=== PATIENT | female | born 2000 | race Caucasian/White ===

== ENCOUNTER → 2020-08-27 | Outpatient (CLI) | payer OTHER ==
[~2020-08-27] MED LIST: AMOXIL400 MG/5 M PO; FLONASE0.05 MG/AC NS; Zithromax200 MG/5 M PO
== END | disposition home or self-care (01) ==
LOC: US 15:00
PROVIDERS: ATTEND Nurse Practitioner Women's Health
DX: N92.6 Irregular menstruation, unspecified (principal)

== ENCOUNTER → 2020-08-31 | Outpatient (CLI) | payer OTHER ==
[2020-08-31 12:51] LABS: BASO % 0.4 % (0.0-1.0); EOS # 0.4 10*3/uL (0.0-0.4); EOS % 3.6 % (1.0-4.0); HEMATOCRIT 42.4 % (37.0-47.0); LYMPH # 2.7 10*3/uL (1.3-4.4); LYMPH % 27.5 % (27.0-41.0); MEAN CELL VOLUME 79.3 fl (81.0-99.0); MEAN CORPUSCULAR HGB 24.3 pg (27.0-31.0); MEAN CORPUSCULAR HGB CONC 30.7 g/dl (33.0-37.0); MONO # 0.6 10*3/uL (0.1-1.0); MONO % 6.4 % (3.0-9.0); NEUT # 6.1 10*3/uL (2.3-7.9); NEUT % 61.4 % (47.0-73.0); PLATELET COUNT AUTOMATED 334 10*3/uL (130-400); RED BLOOD COUNT 5.35 10*6/uL (4.10-5.10); RED CELL DISTRI WIDTH 15.3 % (0-14.5); WHITE BLOOD COUNT 9.9 10*3/uL (4.8-10.8)
[2020-08-31 13:01] LABS: ALBUMIN 3.4 gm/dl (3.1-4.5); ALKALINE PHOSPHATASE 112 U/L (45-117); BUN 11 mg/dl (7-24); CHLORIDE 110 mmol/L (98-107); CREATININE 0.81 mg/dL (0.55-1.02); POTASSIUM 3.9 mmol/L (3.5-5.1); SGOT/AST 15 IU/L (3-35); SGPT/ALT 38 U/L (12-78); SODIUM 137 mmol/L (136-145); TOTAL PROTEIN 7.9 gm/dL (6.4-8.2)
[2020-09-01 11:06] LABS: FOLLICLE STIMULATING HORMONE 7.4 mIU/mL (.); LUTEINIZING HORMONE 6.8 mIU/mL (.); PROLACTIN 21.5 ng/mL (4.8-23.3)
[2020-09-04 13:06] LABS: TESTOSTERONE FREE, (DIRECT) 1.4 pg/mL (Not Estab.)
[2020-09-05 15:07] LABS: 17-OH PROGESTERONE 28 ng/dL (.)
== END | disposition home or self-care (01) ==
LOC: LAB 12:03
PROVIDERS: Nurse Practitioner Women's Health; ATTEND Nurse Practitioner Family
DX: E28.2 Polycystic ovarian syndrome (principal); L68.0 Hirsutism; L83 Acanthosis nigricans; N92.6 Irregular menstruation, unspecified; R63.5 Abnormal weight gain; Z68.54 Body mass index [BMI] pediatric, 95th percentile for age to less than 120% of the 95th percentile for age; Z84.2 Family history of other diseases of the genitourinary system

== ENCOUNTER 2020-10-20 17:43 | Emergency (ER) | payer OTHER ==
[~2020-10-20] VITALS: Ht 172.7 cm; Wt 98.4 kg
[2020-10-20] MEDS ORDERED: Motrin,Rufen800 MG PO (20:59)
[2020-10-20] MEDS ORDERED: MEDROL DOSEPAK4 MG PO (20:59)
== END 2020-10-20 21:08 | disposition home or self-care (01) ==
LOC: ED 17:43
DX: S39.012A Strain of muscle, fascia and tendon of lower back, initial encounter (principal); Z91.048 Other nonmedicinal substance allergy status; Z88.8 Allergy status to other drugs, medicaments and biological substances; X50.1XXA Overexertion from prolonged static or awkward postures, initial encounter; Y93.89 Activity, other specified; Y92.89 Other specified places as the place of occurrence of the external cause; Y99.0 Civilian activity done for income or pay

== ENCOUNTER → 2020-10-23 | Outpatient (CLI) | payer OTHER ==
[~2020-10-23] MED LIST changes: +MEDROL DOSEPAK4 MG PO; +Motrin,Rufen800 MG PO
== END | disposition home or self-care (01) ==
LOC: D 15:18
PROVIDERS: ATTEND Nurse Practitioner Family
DX: R73.03 Prediabetes (principal)

== ENCOUNTER → 2020-11-07 | Outpatient (CLI) | payer OTHER | END | disposition home or self-care (01) | LOC: MRI 13:00 | PROVIDERS: ATTEND Family Medicine | DX: M51.36 Other intervertebral disc degeneration, lumbar region (principal); M48.061 Spinal stenosis, lumbar region without neurogenic claudication ==

== ENCOUNTER 2021-02-04 17:24 | Emergency (ER) | payer OTHER | END 2021-02-04 18:50 | disposition home or self-care (01) | LOC: ED 17:24 | DX: J68.9 Unspecified respiratory condition due to chemicals, gases, fumes and vapors (principal); Z77.098 Contact with and (suspected) exposure to other hazardous, chiefly nonmedicinal, chemicals ==

== ENCOUNTER 2021-05-28 13:55 | Emergency (ER) | payer OTHER ==
[~2021-05-28] VITALS: Wt 103.0 kg
[2021-05-28] MEDS ORDERED: PREDNISONE20 M1 PO (18:12)
[2021-05-28] MEDS ORDERED: METHOCARBAMOL500 M1 PO (18:12)
== END 2021-05-28 18:18 | disposition home or self-care (01) ==
LOC: ED 13:55
DX: S33.5XXA Sprain of ligaments of lumbar spine, initial encounter (principal); M54.16 Radiculopathy, lumbar region; Z88.8 Allergy status to other drugs, medicaments and biological substances; W18.39XA Other fall on same level, initial encounter; Y93.89 Activity, other specified; Y92.89 Other specified places as the place of occurrence of the external cause; Y99.8 Other external cause status

== ENCOUNTER → 2021-08-24 | Outpatient (CLI) | payer OTHER ==
[~2021-08-24] MED LIST changes: +METHOCARBAMOL500 M1 PO; +PREDNISONE20 M1 PO
== END | disposition home or self-care (01) ==
LOC: US 14:30
PROVIDERS: ATTEND Nurse Practitioner Women's Health
DX: N64.59 Other signs and symptoms in breast (principal)

== ENCOUNTER 2021-09-01 00:37 | Emergency (ER) | payer OTHER ==
[~2021-09-01] VITALS: Ht 170.1 cm; Wt 102.1 kg
== END 2021-09-01 01:12 | disposition home or self-care (01) ==
LOC: ED 00:37
DX: S61.412A Laceration without foreign body of left hand, initial encounter (principal); W26.0XXA Contact with knife, initial encounter; Y93.89 Activity, other specified; Y92.89 Other specified places as the place of occurrence of the external cause; Y99.8 Other external cause status

== ENCOUNTER 2022-02-01 09:57 | Emergency (ER) | payer OTHER ==
[~2022-02-01] VITALS: Ht 172.7 cm; Wt 103.0 kg
[2022-02-01 11:32] LABS: BASO % 0.4 % (0.0-1.0); EOS # 0.2 10*3/uL (0.0-0.4); EOS % 2.1 % (1.0-4.0); HEMATOCRIT 42.6 % (37.0-47.0); LYMPH # 2.5 10*3/uL (1.3-4.4); LYMPH % 25.3 % (27.0-41.0); MEAN CELL VOLUME 87.1 fl (81.0-99.0); MEAN CORPUSCULAR HGB 28.8 pg (27.0-31.0); MEAN CORPUSCULAR HGB CONC 33.1 g/dl (33.0-37.0); MEAN PLATELET VOLUME 9.3 fl (9.6-12.3); MONO # 0.5 10*3/uL (0.1-1.0); MONO % 4.9 % (3.0-9.0); NEUT # 6.6 10*3/uL (2.3-7.9); NEUT % 66.7 % (47.0-73.0); PLATELET COUNT AUTOMATED 304 10*3/uL (130-400); RED BLOOD COUNT 4.89 10*6/uL (4.10-5.10); RED CELL DISTRI WIDTH 12.8 % (0-14.5); WHITE BLOOD COUNT 9.8 10*3/uL (4.8-10.8)
[2022-02-01 11:36] LABS: BILIRUBIN Negative (Negative); BLOOD Negative (Negative); CLARITY Clear (Clear); COLOR Yellow (Yellow); GLUCOSE Negative (Negative); KETONE Negative (Negative); LEUKO ESTERASE 1+ (Negative); NITRITE Negative (Negative); SPECIFIC GRAVITY 1.025 (1.001-1.030); UROBILINOGEN 0.2 E.U./dl (0.0-1.0)
[2022-02-01 11:56] LABS: ALKALINE PHOSPHATASE 113 U/L (45-117); BUN 10 mg/dl (7-24); CHLORIDE 111 mmol/L (98-107); CREATININE 0.87 mg/dL (0.55-1.02); LIPASE 170 U/L (73-393); POTASSIUM 3.7 mmol/L (3.5-5.1); SGOT/AST 12 IU/L (3-35); SGPT/ALT 35 U/L (12-78); SODIUM 141 mmol/L (136-145); TOTAL PROTEIN 7.7 gm/dL (6.4-8.2)
[2022-02-01 12:16] LABS: BETA-HCG, QUANT < 1.0 mIU/mL (1-3)
[2022-02-01] MEDS ORDERED: PREDNISONE50 MG PO (13:28)
== END 2022-02-01 13:31 | disposition home or self-care (01) ==
LOC: ED 09:57
PROVIDERS: Emergency Medicine
DX: J06.9 Acute upper respiratory infection, unspecified (principal); J45.901 Unspecified asthma with (acute) exacerbation; R10.9 Unspecified abdominal pain; Z88.8 Allergy status to other drugs, medicaments and biological substances

== ENCOUNTER → 2022-07-08 | Outpatient (CLI) | payer OTHER ==
[~2022-07-08] MED LIST changes: +PREDNISONE50 MG PO
== END | disposition home or self-care (01) ==
LOC: D 14:07
PROVIDERS: ATTEND Nurse Practitioner Family
DX: E66.9 Obesity, unspecified (principal); E11.9 Type 2 diabetes mellitus without complications; Z68.45 Body mass index [BMI] 70 or greater, adult

== ENCOUNTER 2022-07-21 17:25 | Emergency (ER) | payer OTHER ==
[~2022-07-21] VITALS: Ht 170.1 cm; Wt 108.9 kg
== END 2022-07-21 18:57 | disposition home or self-care (01) ==
LOC: ED 17:25
DX: M25.532 Pain in left wrist (principal); M79.642 Pain in left hand; Z88.8 Allergy status to other drugs, medicaments and biological substances

== ENCOUNTER → 2022-07-21 | Outpatient (CLI) | payer OTHER | END | disposition home or self-care (01) | LOC: RAD 14:37 | PROVIDERS: ATTEND Nurse Practitioner Family | DX: M79.642 Pain in left hand (principal); M79.89 Other specified soft tissue disorders ==

== ENCOUNTER 2022-10-02 23:02 | Emergency (ER) | payer OTHER ==
[~2022-10-02] VITALS: Ht 170.1 cm; Wt 105.7 kg
[2022-10-03] MEDS ORDERED: PREDNISONE20 M1 PO ×2 (01:00)
== END 2022-10-03 01:11 | disposition home or self-care (01) ==
LOC: ED 23:02
DX: L23.4 Allergic contact dermatitis due to dyes (principal); E11.9 Type 2 diabetes mellitus without complications; Z88.8 Allergy status to other drugs, medicaments and biological substances; Z88.6 Allergy status to analgesic agent

== ENCOUNTER 2022-10-06 19:52 | Emergency (ER) | payer OTHER ==
[~2022-10-06] VITALS: Ht 322.5 cm; Wt 110.7 kg
[2022-10-06] MEDS ORDERED: KETOROLAC10 MG PO (20:47)
[2022-10-06] MEDS ORDERED: PREDNISONE50 MG PO (20:47)
== END 2022-10-06 20:52 | disposition home or self-care (01) ==
LOC: ED 19:52
DX: S39.012A Strain of muscle, fascia and tendon of lower back, initial encounter (principal); E11.9 Type 2 diabetes mellitus without complications; Z88.8 Allergy status to other drugs, medicaments and biological substances; Z88.6 Allergy status to analgesic agent; X50.1XXA Overexertion from prolonged static or awkward postures, initial encounter; Y93.89 Activity, other specified; Y92.89 Other specified places as the place of occurrence of the external cause; Y99.0 Civilian activity done for income or pay

== ENCOUNTER → 2022-11-04 | Outpatient (CLI) | payer OTHER ==
[~2022-11-04] MED LIST changes: +KETOROLAC10 MG PO
== END | disposition home or self-care (01) ==
LOC: US 01:36
PROVIDERS: ATTEND Nurse Practitioner Family
DX: K76.0 Fatty (change of) liver, not elsewhere classified (principal); K82.9 Disease of gallbladder, unspecified; M47.816 Spondylosis without myelopathy or radiculopathy, lumbar region

== ENCOUNTER 2022-11-21 17:57 | Emergency (ER) | payer OTHER ==
[~2022-11-21] VITALS: Ht 170.1 cm; Wt 103.9 kg
[2022-11-21 18:42] LABS: BASO % 0.3 % (0.0-1.0); EOS # 0.1 10*3/uL (0.0-0.4); EOS % 1.3 % (1.0-4.0); HEMATOCRIT 42.2 % (37.0-47.0); LYMPH # 2.9 10*3/uL (1.3-4.4); LYMPH % 30.9 % (27.0-41.0); MEAN CELL VOLUME 84.4 fl (81.0-99.0); MEAN CORPUSCULAR HGB 28.2 pg (27.0-31.0); MEAN CORPUSCULAR HGB CONC 33.4 g/dl (33.0-37.0); MEAN PLATELET VOLUME 9.2 fl (9.6-12.3); MONO # 0.5 10*3/uL (0.1-1.0); MONO % 5.1 % (3.0-9.0); NEUT # 5.7 10*3/uL (2.3-7.9); NEUT % 61.9 % (47.0-73.0); PLATELET COUNT AUTOMATED 308 10*3/uL (130-400); RED CELL DISTRI WIDTH 13.1 % (0-14.5); WHITE BLOOD COUNT 9.3 10*3/uL (4.8-10.8)
[2022-11-21 19:00] LABS: ALKALINE PHOSPHATASE 79 U/L (46-116); BUN 7 mg/dl (9-23); CHLORIDE 105 mmol/L (98-107); LIPASE 45 U/L (12-53); POTASSIUM 3.9 mmol/L (3.4-5.1); SGPT/ALT 29 U/L (10-49); TOTAL PROTEIN 7.3 gm/dL (6.0-8.0)
[2022-11-21] MEDS ORDERED: ONDANSETRON4 MG SL (19:35)
== END 2022-11-21 19:40 | disposition home or self-care (01) ==
LOC: ED 17:57
PROVIDERS: Nurse Practitioner Family
DX: K21.9 Gastro-esophageal reflux disease without esophagitis (principal); K82.9 Disease of gallbladder, unspecified; E11.9 Type 2 diabetes mellitus without complications; Z91.041 Radiographic dye allergy status; Z88.6 Allergy status to analgesic agent; Z88.8 Allergy status to other drugs, medicaments and biological substances

== ENCOUNTER → 2022-11-22 | Outpatient (CLI) | payer OTHER ==
[~2022-11-22] MED LIST changes: +DULERA100 INH; +HYDROXYZINE HCL25 MG PO; +JANUVIA50 MG PO; +LARIN FE 1-201 EACH PO; +METFORMIN HYDR500 MG PO; +ONDANSETRON4 MG SL; +RITALIN10 MG PO; +VILAZODONE HCL PO
== END | disposition home or self-care (01) ==
LOC: NM 07:00
PROVIDERS: ATTEND Nurse Practitioner Family
DX: K82.8 Other specified diseases of gallbladder (principal)

== ENCOUNTER 2022-11-23 22:24 | Emergency (ER) | payer OTHER ==
[~2022-11-23] VITALS: Ht 170.1 cm; Wt 103.9 kg
[~2022-11-23 22:24] MED LIST changes: -DULERA100 INH; -HYDROXYZINE HCL25 MG PO; -JANUVIA50 MG PO; -LARIN FE 1-201 EACH PO; -METFORMIN HYDR500 MG PO; -RITALIN10 MG PO; -VILAZODONE HCL PO
[2022-11-23] MEDS ORDERED: METFORMIN HYDR500 MG PO (23:04)
[2022-11-23] MEDS ORDERED: JANUVIA50 MG PO (23:05)
[2022-11-23] MEDS ORDERED: RITALIN10 MG PO (23:05)
[2022-11-23] MEDS ORDERED: LARIN FE 1-201 EACH PO (23:06)
[2022-11-23] MEDS ORDERED: VILAZODONE HCL PO (23:06)
[2022-11-23] MEDS ORDERED: DULERA100 INH (23:07)
[2022-11-23] MEDS ORDERED: HYDROXYZINE HCL25 MG PO (23:07)
[2022-11-23 23:58] LABS: BASO % 0.4 % (0.0-1.0); EOS # 0.2 10*3/uL (0.0-0.4); EOS % 1.7 % (1.0-4.0); HEMATOCRIT 40.3 % (37.0-47.0); LYMPH # 3.7 10*3/uL (1.3-4.4); LYMPH % 36.1 % (27.0-41.0); MEAN CELL VOLUME 84.3 fl (81.0-99.0); MEAN CORPUSCULAR HGB 27.8 pg (27.0-31.0); MEAN PLATELET VOLUME 9.2 fl (9.6-12.3); MONO # 0.6 10*3/uL (0.1-1.0); MONO % 5.5 % (3.0-9.0); NEUT # 5.7 10*3/uL (2.3-7.9); NEUT % 55.9 % (47.0-73.0); PLATELET COUNT AUTOMATED 292 10*3/uL (130-400); RED BLOOD COUNT 4.78 10*6/uL (4.10-5.10); RED CELL DISTRI WIDTH 12.9 % (0-14.5); WHITE BLOOD COUNT 10.2 10*3/uL (4.8-10.8)
[2022-11-24 00:26] LABS: ALKALINE PHOSPHATASE 72 U/L (46-116); BUN 10 mg/dl (9-23); CHLORIDE 106 mmol/L (98-107); LIPASE 56 U/L (12-53); POTASSIUM 3.8 mmol/L (3.4-5.1); SGPT/ALT 26 U/L (10-49); TOTAL PROTEIN 6.7 gm/dL (6.0-8.0)
[2022-11-24 00:42] LABS: BILIRUBIN Negative (Negative); BLOOD 3+ (Negative); CLARITY Clear (Clear); COLOR Yellow (Yellow); GLUCOSE Negative (Negative); KETONE Negative (Negative); LEUKO ESTERASE Trace (Negative); NITRITE Negative (Negative); PH 6.5 (4.5-8.0); SPECIFIC GRAVITY 1.025 (1.001-1.030)
[2022-11-24 01:06] LABS: BACTERIA 2+; EPITHELIAL CELLS 16-20; RBC 21-30 rbc/hpf (0-2)
== END 2022-11-24 01:55 | disposition home or self-care (01) ==
LOC: ED 22:24
PROVIDERS: Emergency Medicine
DX: K82.9 Disease of gallbladder, unspecified (principal); J45.909 Unspecified asthma, uncomplicated; E11.9 Type 2 diabetes mellitus without complications; Z91.041 Radiographic dye allergy status; Z88.6 Allergy status to analgesic agent; Z88.8 Allergy status to other drugs, medicaments and biological substances; Z91.018 Allergy to other foods

== ENCOUNTER 2023-01-19 10:28 | Emergency (ER) | payer OTHER ==
[~2023-01-19] VITALS: Ht 170.1 cm; Wt 104.3 kg
[~2023-01-19 10:28] MED LIST changes: +DULERA100 INH; +HYDROXYZINE HCL25 MG PO; +JANUVIA50 MG PO; +LARIN FE 1-201 EACH PO; +METFORMIN HYDR500 MG PO; +RITALIN10 MG PO; +VILAZODONE HCL PO
[2023-01-19] MEDS ORDERED: PROVENTIL HFA6.7 GM INH (11:01)
[2023-01-19] MEDS ORDERED: VENTOLIN 02.5 MG/3 M INH (11:01)
== END 2023-01-19 12:09 | disposition home or self-care (01) ==
LOC: ED 10:28
DX: S92.532A Displaced fracture of distal phalanx of left lesser toe(s), initial encounter for closed fracture (principal); J45.909 Unspecified asthma, uncomplicated; K21.9 Gastro-esophageal reflux disease without esophagitis; E11.9 Type 2 diabetes mellitus without complications; Z91.018 Allergy to other foods; Z88.6 Allergy status to analgesic agent; Z88.8 Allergy status to other drugs, medicaments and biological substances; W20.8XXA Other cause of strike by thrown, projected or falling object, initial encounter; Y93.89 Activity, other specified; Y92.89 Other specified places as the place of occurrence of the external cause; Y99.8 Other external cause status

== ENCOUNTER 2023-06-19 22:29 | Emergency (ER) | payer OTHER ==
[~2023-06-19] VITALS: Ht 170.1 cm; Wt 104.3 kg
[~2023-06-19 22:29] MED LIST changes: +PROVENTIL HFA6.7 GM INH; +VENTOLIN 02.5 MG/3 M INH
[2023-06-19] MEDS ORDERED: diphenhydrAMINE hydrochloride 50 MG/ML VIAL IM ONE (22:50)
== END 2023-06-19 23:32 | disposition home or self-care (01) ==
LOC: ED 22:29
DX: T78.40XA Allergy, unspecified, initial encounter (principal); Z91.018 Allergy to other foods; Z91.041 Radiographic dye allergy status; Z91.048 Other nonmedicinal substance allergy status; Z88.6 Allergy status to analgesic agent; Z91.013 Allergy to seafood; Z79.899 Other long term (current) drug therapy; X58.XXXA Exposure to other specified factors, initial encounter

== ENCOUNTER 2023-07-24 21:16 | Emergency (ER) | payer OTHER ==
[2023-07-24] MEDS ORDERED: ACETAMINOPHEN 325 MG TAB PO ONE (21:35)
== END 2023-07-24 23:06 | disposition home or self-care (01) ==
LOC: ED 21:16
DX: S09.8XXA Other specified injuries of head, initial encounter (principal); M54.50 Low back pain, unspecified; E11.9 Type 2 diabetes mellitus without complications; J45.909 Unspecified asthma, uncomplicated; Z91.013 Allergy to seafood; Z91.018 Allergy to other foods; Z91.041 Radiographic dye allergy status; Z88.8 Allergy status to other drugs, medicaments and biological substances; V49.9XXA Car occupant (driver) (passenger) injured in unspecified traffic accident, initial encounter; Y93.89 Activity, other specified; Y92.410 Unspecified street and highway as the place of occurrence of the external cause; Y99.8 Other external cause status

== ENCOUNTER 2023-12-03 15:44 | Emergency (ER) | payer OTHER ==
[~2023-12-03] VITALS: Ht 170.1 cm; Wt 96.8 kg
[2023-12-03] MEDS ORDERED: LAMOTRIGINE25 M1 PO (15:49)
[2023-12-03] MEDS ORDERED: AVIANE-28 TABL1 EACH PO (15:50)
[2023-12-03] MEDS ORDERED: FAMOTIDINE40 MG PO (15:51)
== END 2023-12-03 16:29 | disposition home or self-care (01) ==
LOC: ED 15:44
DX: H43.391 Other vitreous opacities, right eye (principal); F32.A Depression, unspecified; J45.909 Unspecified asthma, uncomplicated; E11.9 Type 2 diabetes mellitus without complications; Z91.013 Allergy to seafood; Z91.041 Radiographic dye allergy status; Z91.048 Other nonmedicinal substance allergy status; Z88.8 Allergy status to other drugs, medicaments and biological substances

== ENCOUNTER 2024-01-15 18:40 | Emergency (ER) | payer OTHER ==
[~2024-01-15] VITALS: Ht 170.1 cm; Wt 95.3 kg
[~2024-01-15 18:40] MED LIST changes: +AVIANE-28 TABL1 EACH PO; +FAMOTIDINE40 MG PO; +LAMOTRIGINE25 M1 PO
[2024-01-15] MEDS ORDERED: CEPHALEXIN500 M1 PO (20:33)
== END 2024-01-15 20:53 | disposition home or self-care (01) ==
LOC: ED 18:40
DX: S91.202A Unspecified open wound of left great toe with damage to nail, initial encounter (principal); E11.9 Type 2 diabetes mellitus without complications; F41.9 Anxiety disorder, unspecified; F32.A Depression, unspecified; Z91.013 Allergy to seafood; Z91.041 Radiographic dye allergy status; Z91.048 Other nonmedicinal substance allergy status; Z88.8 Allergy status to other drugs, medicaments and biological substances; W20.8XXA Other cause of strike by thrown, projected or falling object, initial encounter; Y93.89 Activity, other specified; Y92.009 Unspecified place in unspecified non-institutional (private) residence as the place of occurrence of the external cause; Y99.8 Other external cause status

== ENCOUNTER 2024-01-19 19:31 | Emergency (ER) | payer OTHER ==
[~2024-01-19] VITALS: Wt 95.3 kg
[~2024-01-19 19:31] MED LIST changes: +CEPHALEXIN500 M1 PO
== END 2024-01-19 20:39 | disposition home or self-care (01) ==
LOC: ED 19:31
DX: S61.412A Laceration without foreign body of left hand, initial encounter (principal); J45.909 Unspecified asthma, uncomplicated; E11.9 Type 2 diabetes mellitus without complications; F41.9 Anxiety disorder, unspecified; F32.A Depression, unspecified; Z91.013 Allergy to seafood; Z88.8 Allergy status to other drugs, medicaments and biological substances; Z91.041 Radiographic dye allergy status; Z91.048 Other nonmedicinal substance allergy status; W26.0XXA Contact with knife, initial encounter; Y93.89 Activity, other specified; Y92.009 Unspecified place in unspecified non-institutional (private) residence as the place of occurrence of the external cause; Y99.8 Other external cause status

== ENCOUNTER 2024-01-21 09:00 | Emergency (ER) | payer OTHER ==
[~2024-01-21] VITALS: Ht 170.1 cm; Wt 95.3 kg
[2024-01-21] MEDS ORDERED: Sulfamethoxazole/Trimethopri 1 TAB TAB PO ONE (09:15)
[2024-01-21] MEDS ORDERED: SEPTDS PO (09:23)
[2024-01-22] MEDS ORDERED: NAPROSYN500 MG PO (20:58)
== END 2024-01-21 09:28 | disposition home or self-care (01) ==
LOC: ED 09:00
DX: L03.114 Cellulitis of left upper limb (principal); J45.909 Unspecified asthma, uncomplicated; E11.9 Type 2 diabetes mellitus without complications; F41.9 Anxiety disorder, unspecified; F32.A Depression, unspecified; Z91.013 Allergy to seafood; Z88.8 Allergy status to other drugs, medicaments and biological substances; Z91.041 Radiographic dye allergy status; Z91.048 Other nonmedicinal substance allergy status

== ENCOUNTER 2024-01-22 19:30 | Emergency (ER) | payer OTHER ==
[~2024-01-22] VITALS: Ht 170.1 cm; Wt 95.3 kg
[~2024-01-22 19:30] MED LIST changes: +SEPTDS PO
[2024-01-22] MEDS ORDERED: NAPROSYN500 MG PO (20:58)
== END 2024-01-22 21:23 | disposition home or self-care (01) ==
LOC: ED 19:30
DX: Z48.00 Encounter for change or removal of nonsurgical wound dressing (principal); E11.9 Type 2 diabetes mellitus without complications; F41.9 Anxiety disorder, unspecified; F32.A Depression, unspecified; Z91.013 Allergy to seafood; Z91.041 Radiographic dye allergy status; Z91.048 Other nonmedicinal substance allergy status; Z88.8 Allergy status to other drugs, medicaments and biological substances

== ENCOUNTER → 2024-01-24 | Outpatient (CLI) | payer OTHER ==
[~2024-01-24] MED LIST changes: +NAPROSYN500 MG PO
== END | disposition home or self-care (01) ==
LOC: WOUNDCARE 01:56
PROVIDERS: ATTEND Nurse Practitioner Family
DX: S61.412A Laceration without foreign body of left hand, initial encounter (principal); L03.90 Cellulitis, unspecified; E11.9 Type 2 diabetes mellitus without complications; Z79.899 Other long term (current) drug therapy; X58.XXXA Exposure to other specified factors, initial encounter; Y93.89 Activity, other specified; Y92.89 Other specified places as the place of occurrence of the external cause; Y99.8 Other external cause status

== ENCOUNTER → 2024-01-31 | Outpatient (CLI) | payer OTHER | END | disposition home or self-care (01) | LOC: WOUNDCARE 02:28 | PROVIDERS: ATTEND Nurse Practitioner Family | DX: E11.621 Type 2 diabetes mellitus with foot ulcer (principal); L97.521 Non-pressure chronic ulcer of other part of left foot limited to breakdown of skin; S61.412D Laceration without foreign body of left hand, subsequent encounter; L03.90 Cellulitis, unspecified; X58.XXXD Exposure to other specified factors, subsequent encounter ==

== ENCOUNTER 2024-09-06 16:29 | Emergency (ER) | payer OTHER ==
[~2024-09-06] VITALS: Ht 170.1 cm; Wt 94.8 kg
[2024-09-06] MEDS ORDERED: TRULICITY1.5 MG/0.5 SC (16:54)
[2024-09-06] MEDS ORDERED: VYVANSE40 MG PO (16:55)
[2024-09-06] MEDS ORDERED: OXCARBAZEPINE150 MG PO (16:55)
[2024-09-06 17:37] LABS: BASO % 0.4 % (0.0-1.0); EOS # 0.2 10*3/uL (0.0-0.4); EOS % 1.8 % (1.0-4.0); HEMATOCRIT 43.9 % (37.0-47.0); MEAN CELL VOLUME 83.9 fl (81.0-99.0); MEAN CORPUSCULAR HGB CONC 32.1 g/dl (33.0-37.0); MEAN PLATELET VOLUME 9.7 fl (9.6-12.3); MONO # 0.4 10*3/uL (0.1-1.0); MONO % 4.1 % (3.0-9.0); NEUT # 6.8 10*3/uL (2.3-7.9); NEUT % 66.9 % (47.0-73.0); PLATELET COUNT AUTOMATED 304 10*3/uL (130-400); RED BLOOD COUNT 5.23 10*6/uL (4.10-5.10); RED CELL DISTRI WIDTH 12.2 % (0-14.5); WHITE BLOOD COUNT 10.2 10*3/uL (4.8-10.8)
[2024-09-06 17:54] LABS: BILIRUBIN Negative (Negative); BLOOD Negative (Negative); CLARITY Clear (Clear); COLOR Yellow (Yellow); GLUCOSE 3+ (Negative); KETONE Trace (Negative); LEUKO ESTERASE Negative (Negative); NITRITE Negative (Negative); PH 5.5 (4.5-8.0); SPECIFIC GRAVITY >= 1.030 (1.001-1.030); UROBILINOGEN 0.2 E.U./dl (0.0-1.0)
[2024-09-06 17:59] LABS: URINE AMPHETAMINES Negative (1000ng/ml); URINE BARBITURATES Negative (200ng/ml); URINE BENZODIAZEPINES Negative (200ng/ml); URINE CANNABINOIDS (THC) Negative (50ng/ml); URINE COCAINE Negative (300ng/ml); URINE METHADONE Negative (300ng/ml); URINE OPIATES Negative (300ng/ml); URINE PHENCYCLIDINE Negative (25ng/ml)
[2024-09-06 18:01] LABS: BUN 10 mg/dl (9-23); CHLORIDE 101 mmol/L (98-107); POTASSIUM 3.5 mmol/L (3.4-5.1)
[2024-09-06 18:03] LABS: BACTERIA 1+; EPITHELIAL CELLS 31-40; RBC 0-2 rbc/hpf (0-2); WBC 21-30 wbc/hpf (0-5)
[2024-09-06 18:03] LABS: ETHYL ALCOHOL < 3.0 mg/dl (<3)
== END 2024-09-06 18:46 | disposition home or self-care (01) ==
LOC: ED 16:29
PROVIDERS: Emergency Medicine
DX: F43.21 Adjustment disorder with depressed mood (principal); I10 Essential (primary) hypertension; E11.9 Type 2 diabetes mellitus without complications; J45.909 Unspecified asthma, uncomplicated; Z79.899 Other long term (current) drug therapy; Z88.1 Allergy status to other antibiotic agents; Z88.8 Allergy status to other drugs, medicaments and biological substances; Z91.041 Radiographic dye allergy status; Z91.013 Allergy to seafood

== ENCOUNTER 2024-10-04 20:38 | Emergency (ER) | payer OTHER ==
[~2024-10-04] VITALS: Ht 170.1 cm; Wt 93.2 kg
[~2024-10-04 20:38] MED LIST changes: +OXCARBAZEPINE150 MG PO; +TRULICITY1.5 MG/0.5 SC; +VYVANSE40 MG PO
== END 2024-10-05 00:16 | disposition home or self-care (01) ==
LOC: ED 20:38
DX: S46.912A Strain of unspecified muscle, fascia and tendon at shoulder and upper arm level, left arm, initial encounter (principal); S80.01XA Contusion of right knee, initial encounter; M54.50 Low back pain, unspecified; Z91.018 Allergy to other foods; Z91.041 Radiographic dye allergy status; Z88.8 Allergy status to other drugs, medicaments and biological substances; Z91.013 Allergy to seafood; Z79.84 Long term (current) use of oral hypoglycemic drugs; Z79.899 Other long term (current) drug therapy; V49.49XA Driver injured in collision with other motor vehicles in traffic accident, initial encounter; Y93.I9 Activity, other involving external motion; Y92.488 Other paved roadways as the place of occurrence of the external cause; Y99.8 Other external cause status

== ENCOUNTER 2024-10-13 20:28 | Emergency (ER) | payer OTHER ==
[~2024-10-13] VITALS: Ht 170.1 cm; Wt 90.7 kg
[2024-10-13] MEDS ORDERED: ROSUVASTATIN CAL5 MG PO (20:42)
[2024-10-13] MEDS ORDERED: STRATTERA40 M1 PO (20:43)
[2024-10-13] MEDS ORDERED: LISINOPRIL2.5 MG PO (20:43)
[2024-10-13] MEDS ORDERED: LANTUS SOL100 UNIT/1 SC (20:43)
[2024-10-13] MEDS ORDERED: LIDOCAINE1 EACH T (21:05)
== END 2024-10-13 21:08 | disposition home or self-care (01) ==
LOC: ED 20:28
DX: S46.912A Strain of unspecified muscle, fascia and tendon at shoulder and upper arm level, left arm, initial encounter (principal); K21.9 Gastro-esophageal reflux disease without esophagitis; E11.9 Type 2 diabetes mellitus without complications; Z91.018 Allergy to other foods; Z91.041 Radiographic dye allergy status; Z88.8 Allergy status to other drugs, medicaments and biological substances; Z91.013 Allergy to seafood; Z79.84 Long term (current) use of oral hypoglycemic drugs; Z79.899 Other long term (current) drug therapy; V49.9XXA Car occupant (driver) (passenger) injured in unspecified traffic accident, initial encounter; Y93.89 Activity, other specified; Y92.89 Other specified places as the place of occurrence of the external cause; Y99.8 Other external cause status

== ENCOUNTER 2024-12-07 14:14 | Emergency (ER) | payer OTHER ==
[~2024-12-07] VITALS: Ht 170.1 cm; Wt 93.4 kg
[~2024-12-07 14:14] MED LIST changes: +LANTUS SOL100 UNIT/1 SC; +LIDOCAINE1 EACH T; +LISINOPRIL2.5 MG PO; +ROSUVASTATIN CAL5 MG PO; +STRATTERA40 M1 PO
[2024-12-07] MEDS ORDERED: diphenhydrAMINE hydrochloride 25 MG CAP PO ONE (15:05)
[2024-12-07] MEDS ORDERED: MEDROL DOSEPAK4 MG PO (15:09)
== END 2024-12-07 15:19 | disposition home or self-care (01) ==
LOC: ED 14:14
DX: L50.9 Urticaria, unspecified (principal); T43.295A Adverse effect of other antidepressants, initial encounter; Z91.018 Allergy to other foods; Z91.041 Radiographic dye allergy status; Z88.8 Allergy status to other drugs, medicaments and biological substances; Z91.013 Allergy to seafood; Z91.048 Other nonmedicinal substance allergy status; Z79.899 Other long term (current) drug therapy; Z79.84 Long term (current) use of oral hypoglycemic drugs; Z79.4 Long term (current) use of insulin; Y92.89 Other specified places as the place of occurrence of the external cause

== ENCOUNTER 2025-01-14 11:18 | Emergency (ER) | payer OTHER ==
[~2025-01-14] VITALS: Ht 170.1 cm; Wt 91.2 kg
[2025-01-14] MEDS ORDERED: JORNAY PM20 MG PO (11:28)
[2025-01-14] MEDS ORDERED: NEXTSTELLIS 3-1 EACH PO (11:29)
[2025-01-14] MEDS ORDERED: 'CLONIDINE0.1 MG PO (11:30)
[2025-01-14] MEDS ORDERED: PREDNISONE20 M1 PO (11:54)
[2025-01-14] MEDS ORDERED: Water, Sterile 10 ML VIAL ONE (12:24)
== END 2025-01-14 11:56 | disposition home or self-care (01) ==
LOC: ED 11:18
DX: L25.9 Unspecified contact dermatitis, unspecified cause (principal); K21.9 Gastro-esophageal reflux disease without esophagitis; E11.9 Type 2 diabetes mellitus without complications; J45.909 Unspecified asthma, uncomplicated; F41.9 Anxiety disorder, unspecified; F32.A Depression, unspecified; F84.0 Autistic disorder; Z91.018 Allergy to other foods; Z91.013 Allergy to seafood; Z88.8 Allergy status to other drugs, medicaments and biological substances

== ENCOUNTER → 2025-01-17 | Outpatient (CLI) | payer OTHER ==
[~2025-01-17] MED LIST changes: +'CLONIDINE0.1 MG PO; +JORNAY PM20 MG PO; +NEXTSTELLIS 3-1 EACH PO
== END | disposition home or self-care (01) ==
LOC: MRI 14:30
PROVIDERS: ATTEND Orthopaedic Surgery
DX: S43.52XA Sprain of left acromioclavicular joint, initial encounter (principal); X58.XXXA Exposure to other specified factors, initial encounter; Y93.89 Activity, other specified; Y92.89 Other specified places as the place of occurrence of the external cause; Y99.8 Other external cause status

== ENCOUNTER → 2025-02-04 | Outpatient (CLI) | payer OTHER | END | disposition home or self-care (01) | LOC: LAB 08:29 | PROVIDERS: ATTEND Internal Medicine Endocrinology, Diabetes & Metabolism | DX: E24.9 Cushing's syndrome, unspecified (principal) ==

== ENCOUNTER → 2025-02-06 | Outpatient (CLI) | payer OTHER | END | disposition home or self-care (01) | LOC: LAB 02-05 05:01 | PROVIDERS: ATTEND Internal Medicine Endocrinology, Diabetes & Metabolism | DX: E24.9 Cushing's syndrome, unspecified (principal) ==

== ENCOUNTER 2025-04-01 20:06 | Emergency (ER) | payer OTHER ==
[~2025-04-01] VITALS: Ht 170.1 cm; Wt 95.3 kg
[2025-04-01] MEDS ORDERED: MIXED AMPHETAMI20 MG PO (21:40)
[2025-04-01] MEDS ORDERED: METHOCARBAMOL 750 MG TAB PO ONE (22:25)
[2025-04-01] MEDS ORDERED: NAPROSYN500 MG PO (22:28)
[2025-04-01] MEDS ORDERED: METHOCARBAMOL750 M1 PO (22:28)
== END 2025-04-01 23:10 | disposition home or self-care (01) ==
LOC: ED 20:06
DX: M54.31 Sciatica, right side (principal); M51.26 Other intervertebral disc displacement, lumbar region; J45.909 Unspecified asthma, uncomplicated; F41.9 Anxiety disorder, unspecified; F32.A Depression, unspecified; Z91.018 Allergy to other foods; Z91.013 Allergy to seafood; Z88.8 Allergy status to other drugs, medicaments and biological substances